=== PATIENT | male | born 1945 | race Caucasian/White ===

== ENCOUNTER → 2018-07-31 | Outpatient (CLI) | payer MEDICARE ==
--- NOTE | 2018-07-31 17:55 | MR ---
EXAMINATION TYPE: MR knee RT wo con DATE OF EXAM: 07/31/2018 COMPARISON: None HISTORY: 72-year-old male with right knee pain/medial x 6 mos, hx of fall years ago/torn ACL TECHNIQUE: Multiplanar, multisequence imaging of the right knee is performed without IV contrast. 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 PCL is mildly thickened at 8 mm with some intermediate signal along its midportion. This could repres ent a partial tear or degenerative signal. MCL is intact. LCL complex is intact. Medial meniscus shows a through and through posterior root tear with complex tear extending throughou t the posterior horn into the body. There is extrusion of the medial meniscal body and mass effect on to the overlying MCL. Mild to moderate irregular cartilage loss throughout the medial compartment. The lateral meniscus is diffusely degenerative, torn, an extruded. Extensive fragmentation of the men iscal body is noted. Mild to moderate irregular cartilage loss throughout the lateral compartment. Mild diffuse thinning of patellofemoral compartment articular cartilage volume with a focal superfici al areas of cartilage irregularity. There is marginal spurring. Extensor mechanism is intact. Nonspecific mild anterior soft tissue swelling. There is also a small k nee joint effusion without Rey's cyst. Ganglion cyst formation measuring up to 1.7 x 0.6 x 2.4 cm at the semimembranosus insertion along the posterior lip of the medial tibial plateau. Normal popliteal artery anatomy. Mild to moderate generalized muscular atrophy. No suspicious bone ma rrow replacement. IMPRESSION: 1. Chronically ruptured ACL. 2. Mildly thickened PCL with some inhomogeneous signal. This could represent partial tear. 3. Diffusely degenerative and torn lateral meniscus. Extensive fragmentation of the meniscal body. 4. Through and through tear of the posterior root of the medial meniscus with additional tear extendi ng throughout the posterior horn into the body. The body is extruded with mass effect onto the overly ing MCL. 5. Mild to moderate overall tricompartmental osteoarthrosis with irregular cartilage thinning and mar ginal spurring.
== END | disposition home or self-care (01) ==
LOC: RADMRIMAIN 09:19
PROVIDERS: ATTEND Orthopaedic Surgery
DX: S83.511A Sprain of anterior cruciate ligament of right knee, initial encounter (principal); S83.281A Other tear of lateral meniscus, current injury, right knee, initial encounter; S83.241A Other tear of medial meniscus, current injury, right knee, initial encounter; M17.11 Unilateral primary osteoarthritis, right knee

== ENCOUNTER 2019-08-07 22:42 | Inpatient (IN) | payer MEDICARE ==
--- NOTE | 2019-08-07 23:32 | XR ---
EXAMINATION TYPE: XR chest 2V DATE OF EXAM: 08/07/2019 COMPARISON: 10/08/2015 HISTORY: Chest pain TECHNIQUE: FINDINGS: There is no heart failure nor confluent pneumonic infiltrate. Costophrenic angles are clear . There are sternal wires. Bony thorax appears intact. IMPRESSION: No active cardiomegaly disease. Normal heart. No change.
[2019-08-07 23:51] LABS: Basophils % (A) 1 %; Eosinophils # (A) 0.2 k/uL (0-0.7); Eosinophils % (A) 3 %; HCT 44.8 % (39.0-53.0); HGB 15.3 gm/dL (13.0-17.5); Lymphocytes # (A) 1.9 k/uL (1.0-4.8); Lymphocytes % (A) 31 %; MCH 32.9 pg (25.0-35.0); MCHC 34.1 g/dL (31.0-37.0); MCV 96.6 fL (80.0-100.0); Mean Platelet Volume 7.3; Monocytes # (A) 0.3 k/uL (0-1.0); Monocytes % (A) 5 %; Neutrophils # (A) 3.5 k/uL (1.3-7.7); Neutrophils % (A) 58 %; Platelet Count 259 k/uL (150-450); RBC 4.63 m/uL (4.30-5.90)
[2019-08-08] LABS: Prothrombin Time 10.6 sec (9.0-12.0)
[2019-08-08 00:16] LABS: ALT 36 U/L (4-49); AST 38 U/L (17-59); African American GFR (CKD) >90 (>60 ml/min/1.73 sqM); Albumin 4.4 g/dL (3.5-5.0); Alkaline Phosphatase 82 U/L (38-126); Anion Gap 9 mmol/L; Blood Urea Nitrogen 23 mg/dL (9-20); Calcium 9.6 mg/dL (8.4-10.2); Carbon Dioxide 23 mmol/L (22-30); Chloride 107 mmol/L (98-107); Creatine Kinase 139 U/L (55-170); Glucose 98 mg/dL (74-99); Non-African American GFR(CKD) 89 (>60 ml/min/1.73 sqM); Sodium 139 mmol/L (137-145); Total Bilirubin 0.4 mg/dL (0.2-1.3); Total Protein 7.2 g/dL (6.3-8.2)
--- NOTE | 2019-08-08 00:18 | ED ---
Chest Pain HPI - General Chief Complaint: Chest Pain Stated Complaint: Chest Pain Time Seen by Provider: 08/07/19 23:25 Source: patient, RN notes reviewed, old records reviewed Mode of arrival: ambulatory Limitations: no limitations - History of Present Illness MD Complaint: chest pain -: days(s) Onset: during rest, during exertion Pain Location: substernal, left chest Pain Radiation: LUE Severity: moderate Severity scale (1-10): 4 Quality: tightness, heaviness Consistency: intermittent, now resolved Improves With: nothing Worsens With: exertion Anginal Symptoms: dyspnea Treatments Prior to Arrival: none - Related Data Home Medications Medication Instructions Recorded Confirmed Atorvastatin Calcium [Lipitor] 80 mg PO DAILY 10/08/15 10/08/15 Clopidogrel [Plavix] 75 mg PO DAILY 10/08/15 10/08/15 Metoprolol Tartrate [Lopressor] 50 mg PO BID 10/08/15 10/08/15 Previous Rx's Medication Instructions Recorded Amoxicillin/Potassium Clav 1 each PO Q12HR #20 tab 10/08/15 [Augmentin 875-125 Tablet] Benzonatate [Tessalon Perles] 100 mg PO TID PRN #15 cap 10/08/15 Fluticasone Nasal [place] [Flonase 2 spr EA NOSTRIL DAILY PRN #1 10/08/15 Nasal [place]] bottle Allergies Allergy/AdvReac Type Severity Reaction Status Date / Time No Known Allergies Allergy Verified 08/07/19 22:50 Review of Systems ROS Statement: Those systems with pertinent positive or pertinent negative responses have been documented in the HPI. ROS Other: All systems not noted in ROS Statement are negative. EKG Findings - EKG Comments: EKG Findings:: EKG shows sinus sam 56 MN 164 QRS 126 QTc 413 Past Medical History Past Medical History: Hyperlipidemia, Hypertension, Myocardial Infarction ([place]) History of Any Multi-Drug Resistant Organisms: None Reported Past Surgical History: Coronary Bypass/CABG, Heart Catheterization, Heart Catheterization With Stent Past Psychological History: No Psychological Hx Reported Smoking Status: Former smoker Past Alcohol Use History: Occasional Past Drug Use History: None Reported - Past Family History Mother Family Medical History: Cancer Father Family Medical History: Coronary Artery Disease (CAD) General Exam Limitations: no limitations General appearance: alert, in no apparent distress Head exam: Present: atraumatic, normocephalic, normal inspection Eye exam: Present: normal appearance, PERRL, EOMI. Absent: scleral icterus, conjunctival injection, periorbital swelling ENT exam: Present: normal exam, mucous membranes moist Neck exam: Present: normal inspection. Absent: tenderness, meningismus, lymphadenopathy Respiratory exam: Present: normal lung sounds bilaterally. Absent: respiratory distress, wheezes, rales, rhonchi, stridor Cardiovascular Exam: Present: regular rate, normal rhythm, normal heart sounds. Absent: systolic murmur, diastolic murmur, rubs, gallop, clicks GI/Abdominal exam: Present: soft, normal bowel sounds. Absent: distended, ten derness, guarding, rebound, rigid Extremities exam: Present: normal inspection, full ROM, normal capillary refill. Absent: tenderness, pedal edema, joint swelling, calf tenderness Back exam: Present: normal inspection Neurological exam: Present: alert, oriented X3, CN II-XII intact Psychiatric exam: Present: normal affect, normal mood Skin exam: Present: warm, dry, intact, normal color. Absent: rash Course Vital Signs 08/07/19 08/08/19 08/08/19 22:44 00:00 01:00 Temperature 97.8 F Pulse Rate 63 54 L 53 L Respiratory 18 18 16 Rate Blood Pressure 173/100 128/84 119/74 O2 Sat by Pulse 99 97 95 Oximetry 08/08/19 02:00 Temperature 98.1 F Pulse Rate 52 L Respiratory 16 Rate Blood Pressure 112/86 O2 Sat by Pulse 95 Oximetry Disposition Clinical Impression: Chest pain, Acute non-ST elevation myocardial infarction (NSTEMI) Disposition: ADMITTED IP TO THIS HOSP Condition: Serious Is patient prescribed a controlled substance at d/c from ED?: No
[2019-08-08] MEDS ORDERED: HEPARIN SODIUM,PORCINE 5,000 UNIT/ML 1 ML VIAL IV ONE (01:23)
[2019-08-08] MEDS ORDERED: HEPARIN SODIUM,PORCINE 5,000 UNIT/ML 1 ML VIAL IV PRN (01:23)
[2019-08-08] MEDS ORDERED: ASPIRIN 81 MG PO STA (01:23)
[2019-08-08] MEDS ORDERED: NITROGLYCERIN SL TABS 0.4 MG TAB SUBLINGUAL PRN ×2 (01:23→08:53)
[2019-08-08] MEDS ORDERED: HEPARIN SOD,PORK IN 0.45% NACL 25,000 UNIT in 0.45% NACL 1 250ML.BAG IV SCH (01:30)
[2019-08-08] MEDS ORDERED: SODIUM CHLORIDE 0.9% 1,000 ML in EMPTY BAG 1 BAG IV ONE (08:53)
[2019-08-08] MEDS ORDERED: ALPRAZolam 0.25 MG TAB PO PRN (08:53)
[2019-08-08] MEDS ORDERED: ATORVASTATIN 80 MG TAB PO STA (08:53)
[2019-08-08] MEDS ORDERED: ASPIRIN 325 MG TAB PO STA (08:53)
[2019-08-08] MEDS ORDERED: ALPRAZolam 0.5 MG TAB PO PRN (08:53)
[2019-08-08 09:03] LABS: Mean Platelet Volume 7.4; Platelet Count 224 k/uL (150-450)
[2019-08-08] MEDS: ATORVASTATIN 80 MG TAB PO SCH (09:35)
[2019-08-08] MEDS ORDERED: LIDOCAINE 1% INJ 10MG/ML (20 ML MDV) ONE (09:50)
[2019-08-08] MEDS ORDERED: fentaNYL (PF) 50 MCG/ML 2 ML AMP ONE (09:51)
[2019-08-08] MEDS ORDERED: MIDAZOLAM 2 MG/2 ML VIAL IV ONE (10:15)
[2019-08-08] MEDS ORDERED: fentaNYL (PF) 50 MCG/ML 2 ML AMP IV ONE (10:15)
[2019-08-08] MEDS ORDERED: LIDOCAINE 1% INJ 10MG/ML (20 ML MDV) SQ ONE (10:18)
[2019-08-08] MEDS ORDERED: IV FLUID CONTINUATION 1,000 ML IV ONE (10:19)
[2019-08-08] MEDS ORDERED: IOPAMIDOL-370 100ML BTL INJ ONE ×3 (10:38→11:56)
[2019-08-08] MEDS ORDERED: AMIODARONE 360 MG in DEXTROSE 5% IN WATER 200 ML IV ONE ×2 (10:45)
[2019-08-08] MEDS ORDERED: AMIODARONE 50 MG/ML 3 ML VIAL IV ONE (10:47)
[2019-08-08] MEDS ORDERED: BIVALIRUDIN 250 MG in SODIUM CHLORIDE 0.9% 31 ML IV ONE (11:11)
[2019-08-08] MEDS ORDERED: BIVALIRUDIN BOLUS 250 MG/50 ML IV ONE (11:11)
--- NOTE | 2019-08-08 11:13 | P.CARDCATH ---
Date of Procedure: 08/08/19 Preoperative Diagnosis: Non-STEMI Postoperative Diagnosis: Total occlusion of the graft to the right and the total occlusion of the graft to the OM branch with significant clot. The GONZALEZ graft to LAD is open. The [place] left main has about 70-80% stenosis and total occlusion of the [place] right Procedure(s) Performed: Left heart catheterization with selective coronary arteriography and selective injection of the 2 vein grafts and the GONZALEZ graft Description of Procedure: HISTORY: This is a 73-year-old gentleman with history of previous bypass surgery with 3 grafts and also subsequent stent placement 2. Patient is admitted to the hospital with prolonged chest pain at rest with positive troponins suggestive of non-ST GA. Patient is advised to have a cardiac catheterization for definitive diagnosis CONSENT:I have discussed the risks, benefits and alternative therapies for the above-mentioned procedure and for both sedation/analgesia as well as necessary blood product administration, if indicated, as they pertain to this patient. The patient has indicated understanding and acceptance of the risks and procedures discussed. PROCEDURE: Patient was brought to the lab in a fasting state. Patient was given some IV sedation. The right groin is infiltrated with lidocaine and right femoral artery was entered using Seldinger technique. A 6-Kittitian catheter was left in place and selective coronary arteriography was performed. Selective injection of the 2 vein grafts and also GONZALEZ graft performed. Patient developed an episode of ventricular fibrillation in the procedure, requiring shocks 3. Patient regained pulse and blood pressure promptly without any incident. Subsequently, Patient tolerated the procedure well. Patient was found to have significant disease involving the graft to the OM branch and Dr. KEYONA Guerra is attempting to reopen the graft. Patient also received 150 mg of IV amiodarone bolus followed by drip Conscious Sedation: Versed 1mg Fentanyl 50 g Duration 35minutes HEMODYNAMICS: The aortic pressure is 148/74. The left ventricle end-diastolic pressure is 15-20. There was no gradient across the aortic valve SELECTIVE CORONARY ARTERIOGRAPHY: LEFT MAIN: Mrs. normally length with the distal stenosis with any area of about 70-80% narrowing. THE LEFT ANTERIOR DESCENDING CORONARY ARTERY: This is totally occluded THE LEFT CIRCUMFLEX AND IS CORONARY ARTERY: There is a large intermediate OM branch which seemed to be free of occlusive disease. Beyond that the circumflex is a long lesion leading to the OM branch. The OM branch is relatively small and is supplied by vein graft THE RIGHT CORONARY ARTERY:. This is diffuse disease and total occluded distally. THE GONZALEZ GRAFT TO THE LAD: This is patent throat its length with mild disease at distal anastomosis. LAD has mild disease distally . The vein graft to the OM branch: This is diffusely diseased with multiple lesions on clot and total occlusion in midportion. The The vein graft to the RCA: Is totally occluded LEFT VENTRICULOGRAPHY: Not performed FINAL IMPRESSION:. Coronary artery disease with a total occlusion of the LAD and RCA and a critical lesion in the circumflex. Left main also has significant disease distally. The GONZALEZ graft to the LAD is open. The vein graft to the RCA is totally occluded. The vein graft to the OM branch has diffuse disease though filling defects. PLAN: Dr. KEYONA Guerra is going to return to work in the graft to the OM branch. Subsequently we'll may have to consider stenting of the left main because is providing brisk flow to the OM branch/intermediate branch PROGNOSIS: Guarded
[2019-08-08] MEDS: niCARdipine Syringe (1,000 mcg/10 mL) INTRACORON ONE ×2 (11:33→11:53)
[2019-08-08] MEDS ORDERED: CLOPIDOGREL 75 MG TAB ONE ×2 (11:37→11:39)
[2019-08-08] MEDS ORDERED: CLOPIDOGREL 75 MG TAB PO ONE (11:42)
[2019-08-08] MEDS ORDERED: BIVALIRUDIN 250 MG in SODIUM CHLORIDE 0.9% 50 ML IV ONE (11:47)
[2019-08-08] MEDS ORDERED: NITROGLYCERIN 1000MCG/10ML SYRINGE INTRACORON ONE (11:53)
[2019-08-08] MEDS ORDERED: HYDROmorphone 1 MG/ML 1 ML SYRINGE ONE (12:09)
--- NOTE | 2019-08-08 12:10 | ECHOF ---
Referral Reason:elevTrop MEASUREMENTS -------- HEIGHT: 172.7 cm WEIGHT: 131.5 kg BP: 149/72 RVIDd: 3.7 cm (< 3.3) IVSd: 1.6 cm (0.6 - 1.1) LVIDd: 5.9 cm (3.9 - 5.3) LVPWd: 1.7 cm (0.6 - 1.1) IVSs: 1.9 cm LVIDs: 3.3 cm LVPWs: 2.0 cm LA Diam: 3.9 cm (2.7 - 3.8) Ao Diam: 3.8 cm (2.0 - 3.7) AV Cusp: 2.0 cm (1.5 - 2.6) MV EXCURSION: 22.213 mm (> 18.000) MV EF SLOPE: 83 mm/s (70 - 150) EPSS: 0.5 cm MV E Samson: 0.90 m/s MV DecT: 201 ms MV A Samson: 0.85 m/s MV E/A Ratio: 1.06 RAP: 5.00 mmHg RVSP: 31.41 mmHg FINDINGS -------- Resting bradycardia (HR<60bpm). This was a technically difficult study with suboptimal views. The left ventricular size is normal. There is moderate concentric left ventricular hypertrophy. O verall left ventricular systolic function is low-normal with, an EF between 50 - 55 %. Basal inferi or LV wall motion is hypokinetic. Basal inferoseptal LV wall motion is hypokinetic. The right ventricle is mild to moderately enlarged. The left atrial size is normal. The right atrium is normal in size. 5.0mg of Lumason was utilized for enhancement of images There is mild aortic valve sclerosis. Mild mitral annular calcification present. Mild mitral regurgitation is present. Mild tricuspid regurgitation present. Right ventricular systolic pressure is normal at < 35 mmHg. The pulmonic valve was not well visualized. The aortic root is dilated measuring 3.8cm. IVC Not well visulized. There is no pericardial effusion. CONCLUSIONS -------- 1. Resting bradycardia (HR<60bpm). 2. This was a technically difficult study with suboptimal views. 3. The left ventricular size is normal. 4. There is moderate concentric left ventricular hypertrophy. 5. Overall left ventricular systolic function is low-normal with, an EF between 50 - 55 %. 6. Basal inferior LV wall motion is hypokinetic. 7. Basal inferoseptal LV wall motion is hypokinetic. 8. The right ventricle is mild to moderately enlarged. 9. The left atrial size is normal. 10. The right atrium is normal in size. 11. 5.0mg of Lumason was utilized for enhancement of images 12. There is mild aortic valve sclerosis. 13. Mild mitral annular calcification present. 14. Mild mitral regurgitation is present. 15. Mild tricuspid regurgitation present. 16. Right ventricular systolic pressure is normal at < 35 mmHg. 17. The pulmonic valve was not well visualized. 18. The aortic root is dilated measuring 3.8cm. 19. IVC Not well visulized. 20. There is no pericardial effusion. LANDFILL ATTENDANT: Lady Chinchilla RDCS
[2019-08-08 12:25] LABS: Glucose,Whole Blood 119 mg/dL (75-99)
--- NOTE | 2019-08-08 12:31 | PTCA ---
PERCUTANEOUSTRANS CORORONARY ANGIOGRAPHY DATE OF SERVICE: 08/08/2019. PROCEDURE PERFORMED: PTCA and stenting of a totally occluded saphenous vein graft to the obtuse marginal branch of circumflex. Three drug-eluting stents were used. PERFORMED BY: Dr. Ildefonso Guerra. SEDATION: Moderate conscious sedation time was 52 minutes. Patient was administered Versed. Oxygen saturation, hemodynamics and EKG were monitored closely. CLINICAL INFORMATION: Mr. Joey Terrazas is a patient with a history of hypertension, CAD, prior bypass surgery nearly 25-30 years ago performed at [facility]. He has a GONZALEZ to LAD, 2 vein grafts probably to the RCA and obtuse marginal. He presented with a non-ST elevation PA, was seen and evaluated by Dr. Hoff who performed a cardiac cath. Study revealed total occlusion of the vein graft to the obtuse marginal. RCA graft was seen as a stump. The GONZALEZ to LAD was patent. There was a [place] left main disease which was significant supplying a fairly decent size good distribution diagonal branch. RCA was diffusely diseased, almost distally occluded. He was advised PCI of the vein graft to the circumflex marginal which was a very highly diseased graft that was more than 25 years old. PROCEDURE NOTE: The existing 6-Chinese introducer in the right femoral artery was used to perform procedure. I used a left bypass guide catheter to cannulate the saphenous vein graft to the obtuse marginal. A run-through wire was used to cross the lesion. Predilatation was performed with a 20 mm long 2.5 caliber Trek balloon. I then deployed a 3.25 caliber 28 mm long Xience stent distally. I used an additional 28 mm long 3.25 caliber Xience stent and telescoped this into it proximal to the previous stent. The third stent was a 23 mm long 3.25 caliber stent. All stents were deployed. Flow was excellent. Patient received nicardipine and a nitroglycerin intracoronary. Subsequently, I used a 3.5 NC Trek balloon and dilated the entire stented segment with a 3.5 NC Trek balloon at 13 atmospheres. Patient had mild chest discomfort and no significant EKG changes. Excellent angiographic result was achieved. The distal aspect of the obtuse marginal had a cutoff sign suggesting that there needs to be some thrombus distally. Excellent result was achieved. Results were discussed with the patient and he wishes to talk to his sister who is his nearest relative. The sheath was then taken out and Angio-Seal device used to secure hemostasis and he was sent to the ICU in a stable condition. Prior to the intervention procedure during the cardiac cath, he went into ventricular fibrillation requiring to be shocked. He is on amiodarone drip as well. The aspirin and Plavix will be continued indefinitely. He received 600 mg of Plavix here in the laboratory engineer and also was placed on Angiomax bolus and infusion drip. Excellent angiographic result without complication was achieved. MMMILANAL / IJN: [id number] /
[2019-08-08 12:45] LABS: Magnesium 2.2 mg/dL (1.6-2.3); Potassium 4.4 mmol/L (3.5-5.1)
--- NOTE | 2019-08-08 13:02 | P.CRDCN ---
History of Present Illness Consult date: 08/08/19 Consult reason: non-Q-wave [place] History of present illness: This is a 73-year-old male, not currently following with cardiology. He has a past medical history of coronary artery disease with 3 vessel CABG done 30 years ago, one stent placement 20 years ago and a second stent placement done 10 years ago, all at [facility]. He saw Dr. Recinos one year ago for stress test prior to knee surgery. He also has a past medical history of hypertension, hyperlipidemia, remote history of tobacco use. Patient states he is normally very active but due to [id number] order, patient states he has not been doing any physical activity. He complains of last 3 days having chest pain to the left side of sternal border. It mostly happens when he sitting or at rest. He states when he ambulates he does have some exertional chest pain that resolves once he stops his activity. He states he's been having this pain for 3 days intermittently and it became significantly worse yesterday and he took nitroglycerin that was from 2007. He believes this helped his pain and that resolved within 20-30 minutes. He denies any nausea, vomiting, sweats, radiation of the pain. At the time of this evaluation, patient denies having any chest pain but feels he is upset stomach from being hungry. EKG sinus bradycardia with intraventricular block. Troponin 0.495 and 1.080. Chest x-ray no active cardiopulmonary disease. Echocardiogram reveals EF of 50-55% with moderate concentric left ventricular hypertrophy, basal inferior septal LV wall motion hypokinetic, mild mitral regurgitation, mild tricuspid regurgitation, aortic root is dilated at 3.8 cm. Patient was advised for heart catheterization and patient is agreeable bowl understanding the risk involved. Review Of Systems: Constitutional: No fever, no chills, no night sweats. No weight change. No weakness, fatigue or lethargy. No daytime sleepiness. EENT: No headache. No blurred vision or double vision, no loss of vision. No loss of Hearing, no ringing in the ears, no dizziness. No nasal drainage or congestion. No epistaxis. No sore throat. Lungs: No shortness of breath, cough, no sputum production. No wheezing. Cardiovascular: Reports chest pain, no lower extremity edema. No palpitations. No paroxysmal nocturnal dyspnea. No orthopnea. No lightheadedness or dizziness. No syncopal episodes. Abdominal: No abdominal pain. No nausea, vomiting. No diarrhea. No constipation. No bloody or tarry stools.. No loss of appetite. Genitourinary: No dysuria, increased frequency, urgency. No urinary retention. Musculoskeletal: No myalgias. No muscle weakness, no gait dysfunction, no frequent falls. No back pain. No neck pain. Integumentary: No wounds, no lesions. No rash or pruritus. No unusual bruising. No change in hair or nails. Neurologic: No aphasia. No facial droop. No change in mentation. No head injury. No headache. No paralysis. No paresthesia. Psychiatric: No depression. No anxiety. No mood swings. Endocrine: No abnormal blood sugars. No weight change. No excessive sweating or thirst. No cold intolerance. No weight change. Physical examination: Gen: This is a 73-year-old morbidly obese male. Patient's rest of the edge of the bed and appears to be comfortable and in no acute distress. VS: Afebrile, heart rate 66, blood pressure 162/84, pulse ox 98% on room air HEENT: Head is atraumatic, normocephalic. Pupils equal, round. Sclerae is anicteric. NECK: Supple. No JVD. No lymphadenopathy. No thyromegaly. LUNGS: Clear to auscultation. No wheezes or rhonchi. No intercostal retractions. HEART: Regular rate and rhythm. No murmur. ABDOMEN: Soft. Bowel sounds are present. No masses. No tenderness. EXTREMITIES: No pedal edema. No calf tenderness. NEUROLOGICAL: Patient is awake, alert and oriented x3. Cranial nerves 2 through 12 are grossly intact. Assessment: Non-ST elevated myocardial infarction History of coronary artery disease with previous [place], CABG and stent placement Hypertension Hyperlipidemia Remote history of tobacco use and dependence Plan: Continue heparin drip Patient advised to undergo heart catheterization Continue aspirin, atorvastatin Further recommendations to follow based upon clinical course Thank you kindly for this consultation Nurse practitioner note has been reviewed, I agree with documented findings and plan of care. Patient was seen and examined. Past Medical History Past Medical History: Hyperlipidemia, Hypertension, Myocardial Infarction ([place]) Last Myocardial Infarction Date:: 1989 History of Any Multi-Drug Resistant Organisms: None Reported Past Surgical History: Coronary Bypass/CABG, Heart Catheterization, Heart Catheterization With Stent Additional Past Surgical History / Comment(s): CABG 30yrs Past Anesthesia/Blood Transfusion Reactions: No Reported Reaction Date of Last Stent Placement:: 1989 Past Psychological History: No Psychological Hx Reported Smoking Status: Former smoker Past Alcohol Use History: Occasional Past Drug Use History: None Reported - Past Family History Mother Family Medical History: Cancer Father Family Medical History: Coronary Artery Disease (CAD) Medications and Allergies Home Medications Medication Instructions Recorded Confirmed Type Amoxicillin/Potassium Clav 1 each PO Q12HR #20 tab 10/08/15 Rx [Augmentin 875-125 Tablet] Atorvastatin Calcium [Lipitor] 80 mg PO DAILY 10/08/15 10/08/15 History Benzonatate [Tessalon Perles] 100 mg PO TID PRN #15 cap 10/08/15 Rx Clopidogrel [Plavix] 75 mg PO DAILY 10/08/15 10/08/15 History Fluticasone Nasal [place] [Flonase 2 spr EA NOSTRIL DAILY PRN #1 10/08/15 Rx Nasal [place]] bottle Metoprolol Tartrate [Lopressor] 50 mg PO BID 10/08/15 10/08/15 History Allergies Allergy/AdvReac Type Severity Reaction Status Date / Time No Known Allergies Allergy Verified 08/07/19 22:50 Physical Exam Vitals: Vital Signs Temp Pulse Pulse Resp BP BP Pulse Ox 08/08/19 08:00 97.9 F 66 16 162/84 98 08/08/19 02:20 98.1 F 58 L 16 149/72 98 08/08/19 02:00 98.1 F 52 L 16 112/86 95 08/08/19 01:00 53 L 16 119/74 95 08/08/19 00:00 54 L 18 128/84 97 08/07/19 22:44 97.8 F 63 18 173/100 99 Intake and Output 08/07/19 08/08/19 08/08/19 22:59 06:59 14:59 Other: Weight 131.542 kg 126.8 kg Results 08/08/19 08:12 08/08/19 08:12 Cardiac Enzymes 08/07/19 08/07/19 Range/Units 23:36 23:36 AST 38 (17-59) U/L Troponin I 0.495 H* (0.000-0.034) ng/mL Coagulation 08/07/19 Range/Units 23:36 PT 10.6 (9.0-12.0) sec APTT 24.0 (22.0-30.0) sec CBC 08/07/19 Range/Units 23:36 WBC 6.0 (3.8-10.6) k/uL RBC 4.63 (4.30-5.90) m/uL Hgb 15.3 (13.0-17.5) gm/dL Hct 44.8 (39.0-53.0) % Plt Count 259 (150-450) k/uL Comprehensive Metabolic Panel 08/07/19 Range/Units 23:36 Sodium 139 (137-145) mmol/L Potassium 4.0 (3.5-5.1) mmol/L Chloride 107 (98-107) mmol/L Carbon Dioxide 23 (22-30) mmol/L BUN 23 H (9-20) mg/dL Creatinine 0.82 (0.66-1.25) mg/dL Glucose 98 (74-99) mg/dL Calcium 9.6 (8.4-10.2) mg/dL AST 38 (17-59) U/L ALT 36 (4-49) U/L Alkaline Phosphatase 82 (38-126) U/L Total Protein 7.2 (6.3-8.2) g/dL Albumin 4.4 (3.5-5.0) g/dL Current Medications Generic Name Dose Route Start Last Admin Trade Name Freq PRN Reason Stop Dose Admin Aspirin 325 mg 08/09/19 09:00 Aspirin PO DAILY [facility] Atorvastatin Calcium 80 mg 08/08/19 09:00 Lipitor PO DAILY [facility] Heparin Sodium (Porcine) 0 unit 08/08/19 01:23 Heparin IV Q6HR PRN Low PTT Protocol Heparin Sodium/Sodium Chloride 250 mls @ 9.958 mls/hr 08/08/19 01:30 08/08/19 02:10 25,000 unit/ Sodium Chloride IV 7.57 units/kg/hr .Q24H AC 9.958 mls/hr Administration Protocol 7.57 UNITS/KG/HR Nitroglycerin 0.4 mg 08/08/19 01:23 Nitrostat SUBLINGUAL Q5M PRN Chest Pain Intake and Output 0508/08/19 08/08/19 22:59 06:59 14:59 Other: Weight 131.542 kg 126.8 kg 08/07/19 23:36 08/07/19 23:36
[2019-08-08] MEDS ORDERED: BENZONATATE 100 MG CAP PO PRN (13:25)
[2019-08-08] MEDS: SODIUM CHLORIDE 0.9% 1,000 ML IV SCH (14:06)
[2019-08-08 14:21] LABS: Magnesium 2.1 mg/dL (1.6-2.3)
--- NOTE | 2019-08-08 15:16 | P.HPIM ---
History of Present Illness This is a pleasant 73 years old male with past medical history of hypertension, hyperlipidemia, coronary artery disease . He presented with severe anginal-like chest pain as patient describes it, he felt comfortable and very bad pain with no associated coughing or dyspnea.Vitals are stable. He was recently referred to PCP Dr. Tabor who has not met to me him yet Former smoker, no alcohol or illicit drugs Labs are unremarkable including CBC, INR, BMP, liver enzymes. Troponin is elevated 0.49 and. Chest x-ray: No acute process Patient has been evaluated by binder sorter and he underwent cardiac cath PTCA and stenting of a totally occluded saphenous vein graft to the obtuse marginal branch of circumflex coronary artery with 3 drug-eluting stents were used Patient is currently on aspirin or Plavix, also his normal sinus 75 mL/h He underwent emergent cardiac cath, status post CABG and stent placement with PTCA and stenting of totally occluded saphenous vein graft to the obtuse marginal branch of circumflex artery Review of Systems CONSTITUTIONAL: No fever, no malaise, no fatigue. HEENT: No recent visual problems or hearing problems. Denied any sore throat. CARDIOVASCULAR: No orthopnea, PND, no palpitations, no syncope. PULMONARY: No shortness of breath, no cough, no hemoptysis. GASTROINTESTINAL: No diarrhea, no nausea, no vomiting, no abdominal pain. Normoactive bowel sounds. NEUROLOGICAL: No headaches, no weakness, no numbness. HEMATOLOGICAL: Denies any bleeding or petechiae. GENITOURINARY: Denies any burning micturition, frequency, or urgency. MUSCULOSKELETAL/RHEUMATOLOGICAL: Denies any joint pain, swelling, or any muscle pain. ENDOCRINE: Denies any polyuria or polydipsia. Past Medical History Past Medical History: Hyperlipidemia, Hypertension, Myocardial Infarction ([place]) Last Myocardial Infarction Date:: 1989 History of Any Multi-Drug Resistant Organisms: None Reported Past Surgical History: Coronary Bypass/CABG, Heart Catheterization, Heart C atheterization With Stent Additional Past Surgical History / Comment(s): CABG 30yrs Past Anesthesia/Blood Transfusion Reactions: No Reported Reaction Date of Last Stent Placement:: 1989 Past Psychological History: No Psychological Hx Reported Smoking Status: Former smoker Past Alcohol Use History: Occasional Past Drug Use History: None Reported - Past Family History Mother Family Medical History: Cancer Father Family Medical History: Coronary Artery Disease (CAD) Medications and Allergies Home Medications Medication Instructions Recorded Confirmed Type Amoxicillin/Potassium Clav 1 each PO Q12HR #20 tab 10/08/15 Rx [Augmentin 875-125 Tablet] Atorvastatin Calcium [Lipitor] 80 mg PO DAILY 10/08/15 10/08/15 History Benzonatate [Tessalon Perles] 100 mg PO TID PRN #15 cap 10/08/15 Rx Clopidogrel [Plavix] 75 mg PO DAILY 10/08/15 10/08/15 History Fluticasone Nasal [place] [Flonase 2 spr EA NOSTRIL DAILY PRN #1 10/08/15 Rx Nasal [place]] bottle Metoprolol Tartrate [Lopressor] 50 mg PO BID 10/08/15 10/08/15 History Allergies Allergy/AdvReac Type Severity Reaction Status Date / Time No Known Allergies Allergy Verified 08/07/19 22:50 Physical Exam Vitals: Vital Signs Temp Pulse Pulse Resp BP BP Pulse Ox 08/08/19 12:44 97.6 F 60 20 128/87 94 L 08/08/19 08:00 97.9 F 66 16 162/84 98 08/08/19 02:20 98.1 F 58 L 16 149/72 98 08/08/19 02:00 98.1 F 52 L 16 112/86 95 08/08/19 01:00 53 L 16 119/74 95 08/08/19 00:00 54 L 18 128/84 97 08/07/19 22:44 97.8 F 63 18 173/100 99 Intake and Output 08/07/19 08/08/19 08/08/19 22:59 06:59 14:59 Intake Total 356 Balance 356 Intake: IV 356 Other: Weight 131.542 kg 126.8 kg GENERAL: The patient is alert and oriented x3, not in any acute distress. Well developed, well nourished. HEENT: Pupils are round and equally reacting to light. EOMI. No scleral icterus. No conjunctival pallor. Normocephalic, atraumatic. No pharyngeal erythema. No thyromegaly. CARDIOVASCULAR: S1 and S2 present. No murmurs, rubs, or gallops. PULMONARY: Chest is clear to auscultation, no wheezing or crackles. ABDOMEN: Soft, nontender, nondistended, normoactive bowel sounds. No palpable organomegaly. MUSCULOSKELETAL: No joint swelling or deformity. EXTREMITIES: No cyanosis, clubbing, or pedal edema. NEUROLOGICAL: Gross neurological examination did not reveal any focal deficits. SKIN: No rashes. No petechiae Results CBC & Chem 7: 08/08/19 08:12 08/08/19 13:53 Labs: Abnormal Lab Results - Last 24 Hours (Table) 08/07/19 08/07/19 08/08/19 Range/Units 23:36 23:36 08:12 APTT (22.0-30.0) sec BUN 23 H (9-20) mg/dL POC Glucose (mg/dL) (75-99) mg/dL Troponin I 0.495 H* 1.080 H* (0.000-0.034) ng/mL 08/08/19 08/08/19 Range/Units 08:12 12:23 APTT 34.6 H (22.0-30.0) sec BUN (9-20) mg/dL POC Glucose (mg/dL) 119 H (75-99) mg/dL Troponin I (0.000-0.034) ng/mL Thrombosis Risk Factor Assmnt - Choose All That Apply Any of the Below Risk Factors Present?: Yes Each Factor Represents 1 point: Obesity (BMI >25) Other Risk Factors: Yes Each Risk Factor Represents 2 Points: Age 61-74 years Thrombosis Risk Factor Assessment Total Risk Factor Score: 3 Thrombosis Risk Factor Assessment Level: Moderate Risk Assessment and Plan Assessment: Non-STEMI, status post emergent stenting of a totally occluded saphenous vein graft to the obtuse marginal branch of circumflex coronary Hypertension Hyperlipidemia History of coronary artery disease status post stent and CABG Plan: this is a pleasant 73 years old male who presents with an STEMI, status post cardiac cath and stent placement to occluded the graft to the obtuse branch of circumflex artery. Continue with aspirin and Plavix . Continue with IV fluids Labs and medication were reviewed.. Continue same treatment. Continue with symptomatic treatment. Resume home medication. Monitor lytes and vitals. DVT and GI prophylaxis. Further recommendations of the clinical course of the patient Prognosis is guarded
[2019-08-08] MEDS: AMIODARONE 300 MG in DEXTROSE 5% IN WATER 250 ML IV SCH ×2 (17:34)
[2019-08-08] MEDS: METOPROLOL TARTRATE 12.5 MG TAB PO SCH (17:56)
[2019-08-09] MEDS: SODIUM CHLORIDE 0.9% 1,000 ML IV SCH (01:23)
[2019-08-09] MEDS: AMIODARONE 300 MG in DEXTROSE 5% IN WATER 250 ML IV SCH ×2 (03:34)
[2019-08-09 05:25] LABS: HCT 43.2 % (39.0-53.0); HGB 14.3 gm/dL (13.0-17.5); MCH 32.6 pg (25.0-35.0); MCHC 33.1 g/dL (31.0-37.0); MCV 98.6 fL (80.0-100.0); Mean Platelet Volume 7.4; Platelet Count 191 k/uL (150-450); RBC 4.38 m/uL (4.30-5.90); RDW 13.6 % (11.5-15.5)
[2019-08-09 05:38] LABS: African American GFR (CKD) >90 (>60 ml/min/1.73 sqM); Anion Gap 10 mmol/L; Blood Urea Nitrogen 12 mg/dL (9-20); Carbon Dioxide 19 mmol/L (22-30); Chloride 108 mmol/L (98-107); Cholesterol 142 mg/dL (<200); Glucose 106 mg/dL (74-99); HDL Cholesterol 41 mg/dL (40-60); LDL Cholesterol,Calculated 58 mg/dL (0-99); Non-African American GFR(CKD) >90 (>60 ml/min/1.73 sqM); Potassium 4.1 mmol/L (3.5-5.1); Sodium 137 mmol/L (137-145); Triglycerides 213 mg/dL (<150)
[2019-08-09] MEDS: METOPROLOL TARTRATE 12.5 MG TAB PO SCH (08:20)
[2019-08-09] MEDS: ATORVASTATIN 80 MG TAB PO SCH (08:20)
[2019-08-09] MEDS ORDERED: ASPIRIN 325 MG TAB PO SCH ×2 (09:00)
[2019-08-09] MEDS ORDERED: LOSARTAN 50 MG TAB PO SCH (09:00)
[2019-08-09] MEDS ORDERED: CLOPIDOGREL 75 MG TAB PO SCH (09:00)
[2019-08-09] MEDS ORDERED: ASPIRIN 81 MG PO SCH (09:00)
[2019-08-09 12:52] VITALS: BP 132/84; PULSE 68; RESP 19; TEMP 98.2
[2019-08-09] MEDS ORDERED: METOPROLOL TARTRATE 25 MG TAB PO SCH (21:00)
--- NOTE | 2019-08-10 01:31 | P.DS ---
Providers Date of admission: 08/08/19 01:23 Attending physician: Raymundo Trinidad Consults: 08/08/19 01:23 Consult Physician Urgent Consulting Provider: Saira Recinos Consult Reason/Comments: nstemi Do you want consulting provider notified?: Yes Primary care physician: Kia Zayas Hospital Course: Please note that patient signed leaving AMA Diagnoses: Non-STEMI, status post emergent stenting of a totally occluded saphenous vein graft to the obtuse marginal branch of circumflex coronary Hypertension Hyperlipidemia History of coronary artery disease status post stent and CABG Hospital course Patient was admitted to the hospital for non-STEMI, he underwent cardiac cath and stent was placed into his occluded graft. He remained in the ICU asymptomatic but he needs close monitoring by sexologist who recommended further monitoring total, however patient refused to wear and stay and he decided to leave AMA before have a chance to come and see the patient. Patient told to stop that he has aspirin and Plavix and that he is going to follow-up with his PCP to cut a prescription for nitroglycerin and Xanax recommended by sexologist. From my previous encounter and based upon my evaluation patient has capacity to make medical decision Risks, benefits and alternatives are explained to the patient by staff Please refer to H&P and sexologist notes for more details Patient Condition at Discharge: Serious Plan - Discharge Summary Discharge Rx Participant: Yes New Discharge Prescriptions: No Action Clopidogrel [Plavix] 75 mg PO DAILY Atorvastatin Calcium [Lipitor] 80 mg PO DAILY Gemfibrozil [Lopid] 600 mg PO DAILY Metoprolol Tartrate [Lopressor] 25 mg PO BID Losartan [Cozaar] 50 mg PO DAILY Discharge Medication List Atorvastatin Calcium [Lipitor] 80 mg PO DAILY 10/08/15 [History] Clopidogrel [Plavix] 75 mg PO DAILY 10/08/15 [History] Gemfibrozil [Lopid] 600 mg PO DAILY 08/08/19 [History] Losartan [Cozaar] 50 mg PO DAILY 08/08/19 [History] Metoprolol Tartrate [Lopressor] 25 mg PO BID 08/08/19 [History] Follow up Appointment(s)/Referral(s): Kia Zayas MD [Primary Care Provider] - 1-2 days Discharge Disposition: Left Against Medical Advice
== END 2019-08-09 12:35 | disposition left against medical advice (07) | DRG 246 ==
LOC: EC 22:42 → 3SCARD 08-08 01:23 → 2SICU 08-08 11:53
PROVIDERS: ADMIT Hospitalist; ATTEND Hospitalist
PROC: 5A2204Z Restoration of Cardiac Rhythm, Single (ICD-10-PCS; principal; 2019-08-08 09:21)
PROC: 027036Z Dilation of Coronary Artery, One Artery with Three Drug-eluting Intraluminal Devices, Percutaneous Approach (ICD-10-PCS; 2019-08-08 09:21)
PROC: 4A023N7 Measurement of Cardiac Sampling and Pressure, Left Heart, Percutaneous Approach (ICD-10-PCS; 2019-08-08 09:21)
PROC: B2111ZZ Fluoroscopy of Multiple Coronary Arteries using Low Osmolar Contrast (ICD-10-PCS; 2019-08-08 09:21)
PROC: B2131ZZ Fluoroscopy of Multiple Coronary Artery Bypass Grafts using Low Osmolar Contrast (ICD-10-PCS; 2019-08-08 09:21)
DX: I21.4 Non-ST elevation (NSTEMI) myocardial infarction (principal); I49.01 Ventricular fibrillation; I25.810 Atherosclerosis of coronary artery bypass graft(s) without angina pectoris; I25.2 Old myocardial infarction; Z87.891 Personal history of nicotine dependence; E78.5 Hyperlipidemia, unspecified; I11.9 Hypertensive heart disease without heart failure; I25.10 Atherosclerotic heart disease of native coronary artery without angina pectoris; I45.4 Nonspecific intraventricular block; Z79.02 Long term (current) use of antithrombotics/antiplatelets; Z79.899 Other long term (current) drug therapy; Z82.49 Family history of ischemic heart disease and other diseases of the circulatory system; Z95.5 Presence of coronary angioplasty implant and graft; Z95.1 Presence of aortocoronary bypass graft; Z80.9 Family history of malignant neoplasm, unspecified; Z11.59 Encounter for screening for other viral diseases; I08.1 Rheumatic disorders of both mitral and tricuspid valves
CPT/HCPCS: 36415; 71046; 80048; 80051; 80053; 80061; 82550; 83735; 84484; 85025; 85027; 85049; 85610; 85730; 87635; 93005; 93306; 93459; 96374; 99285

== ENCOUNTER 2019-09-08 08:03 | Day surgery (SDC) | payer MEDICARE ==
[~2019-09-08 08:03] MED LIST: ALPRAZolam 0.25 MG TAB PO PRN; ASPIRIN 325 MG TAB PO STA; ATORVASTATIN 80 MG TAB PO STA; NITROGLYCERIN SL TABS 0.4 MG TAB SUBLINGUAL PRN; SODIUM CHLORIDE 0.9% 1,000 ML in EMPTY BAG 1 BAG IV ONE
[2019-09-08] MEDS ORDERED: SODIUM CHLORIDE 0.9% 1,000 ML IV ONE (08:40)
[2019-09-08] MEDS ORDERED: LIDOCAINE 1% INJ 10MG/ML (20 ML MDV) ONE (08:51)
[2019-09-08] MEDS ORDERED: fentaNYL (PF) 50 MCG/ML 2 ML AMP ONE (09:12)
[2019-09-08 09:24] LABS: African American GFR (CKD) >90 (>60 ml/min/1.73 sqM); Anion Gap 8 mmol/L; Blood Urea Nitrogen 14 mg/dL (9-20); Calcium 9.6 mg/dL (8.4-10.2); Carbon Dioxide 24 mmol/L (22-30); Chloride 109 mmol/L (98-107); Glucose 108 mg/dL (74-99); Non-African American GFR(CKD) >90 (>60 ml/min/1.73 sqM); Potassium 4.9 mmol/L (3.5-5.1); Sodium 141 mmol/L (137-145)
[2019-09-08] MEDS: fentaNYL (PF) 50 MCG/ML 2 ML AMP IV ONE ×2 (09:30→10:35)
[2019-09-08] MEDS ORDERED: LIDOCAINE 1% INJ 10MG/ML (20 ML MDV) SQ ONE (09:32)
[2019-09-08] MEDS ORDERED: HEPARIN SODIUM 1,000 UN/ML (10ML VL) ONE ×2 (09:38→10:33)
[2019-09-08] MEDS: MIDAZOLAM 2 MG/2 ML VIAL IV ONE ×2 (09:41→10:56)
[2019-09-08 09:47] LABS: Basophils % (A) 0 %; Eosinophils # (A) 0.1 k/uL (0-0.7); Eosinophils % (A) 3 %; HCT 45.8 % (39.0-53.0); HGB 15.7 gm/dL (13.0-17.5); Lymphocytes # (A) 1.1 k/uL (1.0-4.8); Lymphocytes % (A) 22 %; MCH 33.3 pg (25.0-35.0); MCHC 34.2 g/dL (31.0-37.0); MCV 97.5 fL (80.0-100.0); Mean Platelet Volume 7.2; Monocytes # (A) 0.3 k/uL (0-1.0); Monocytes % (A) 6 %; Neutrophils # (A) 3.5 k/uL (1.3-7.7); Neutrophils % (A) 67 %; Platelet Count 199 k/uL (150-450); RDW 13.9 % (11.5-15.5); WBC 5.3 k/uL (3.8-10.6)
[2019-09-08] MEDS ORDERED: HYDROmorphone 1 MG/ML 1 ML SYRINGE ONE (09:57)
[2019-09-08] MEDS ORDERED: HYDROmorphone 1 MG/ML 1 ML SYRINGE IVP ONE (09:59)
[2019-09-08] MEDS ORDERED: NITROGLYCERIN 1000MCG/10ML SYRINGE INTRACORON ONE (10:07)
[2019-09-08] MEDS ORDERED: IOPAMIDOL-370 125ML BTL INJ ONE (10:11)
[2019-09-08] MEDS ORDERED: IOPAMIDOL-370 100ML BTL INJ ONE ×3 (10:27→11:10)
[2019-09-08] MEDS ORDERED: HEPARIN SODIUM 1,000 UN/ML (10ML VL) IV ONE (10:34)
[2019-09-08] MEDS ORDERED: ATROPINE SULFATE 0.1 MG/ML 10ML SYRINGE IV PRN (11:34)
[2019-09-08] MEDS ORDERED: MAG HYDROX/AL HYDROX/SIMETH 30 ML CUP PO PRN (11:34)
[2019-09-08] MEDS ORDERED: RX INFO: IV CONTRAST WAS GIVEN 1 EACH MISC MISCELLANE PRN (11:34)
[2019-09-08] MEDS ORDERED: NITROGLYCERIN SL TABS 0.4 MG TAB SUBLINGUAL PRN (11:34)
[2019-09-08] MEDS ORDERED: ZOLPIDEM 5 MG TAB PO PRN (11:34)
[2019-09-08] MEDS ORDERED: SODIUM CHLORIDE 0.9% 1,000 ML IV SCH (11:45)
[2019-09-08] MEDS: ALPRAZolam 0.5 MG TAB PO PRN ×2 (13:44→20:56)
--- NOTE | 2019-09-08 15:22 | PTCA ---
PERCUTANEOUSTRANS CORORONARY ANGIOGRAPHY Mr. Terrazas is a 73-year-old male, status post coronary artery bypass grafting 25 years ago who presented a few weeks ago with an acute myocardial infarction, was found to have a totally occluded saphenous vein graft to the obtuse marginal branch. He underwent revascularization of that vessel. At that time, he was found to have a totally occluded [place] obtuse marginal branch and critical stenosis in the left main and a very calcified segment leading into the ramus intermedius. In view of that, recommendation made regarding angioplasty and stenting, the procedures, risks, and complication were discussed with the patient, who is in full understanding and agreement. PROCEDURE: Patient was brought to dental laboratory worker in a fasting semi-sedate state after receiving fentanyl and Benadryl and achieving moderate conscious sedated state. Using Xylocaine anesthesia and Seldinger technique, a 7-Barb[place] sheath was introduced in the right femoral artery. Following that, a 7-Barbadian EBU 3.75 guiding catheter introduced into the system. After cannulating the left main, a 0.014 balanced medium weight J- wire was advanced across the left main and positioned in the ramus intermedius. Subsequently attempt to cross the total occlusion of the obtuse marginal branch using a 0.014 BMW wire were unsuccessful. That wire was removed and with the help of a Fine Cross and a Whisper J-wire, the total occlusion was crossed and the wire was positioned distally. That wire was exchanged over the FineCross to the 0.014 balanced medium weight J-wire. Subsequently, a 2.0 x 8 mm Trek balloon was advanced and multiple inflation maximum of 8 atmospheres were done. Following that, the balloon was removed and a 2.5 x 12 mm Trek balloon was advanced and multiple inflation maximum of 8 atmospheres were done. Following that, the balloon was removed and a 2.5 x 15 mm Xience Julia stent was deployed in the proximal segment of the obtuse marginal branch and post dilated at 16 atmospheres. After that, another 2.5 x 12 mm Xience Julia stent was deployed in the distal segment, post-dilated to 16 atmospheres and subsequent to that, 2.5 x 12 mm Xience Julia stent was deployed between the 2 stents and post-dilated to 16 atmospheres. Following that, the balloon was removed and a 3.0 x 15 mm NC Trek balloon was advanced and multiple inflation in the stented segment were done at maximum of 12 atmospheres. After the last inflation, after appropriate wait, the balloon and the guidewire were withdrawn back in the guiding catheter. The images were obtained and repeated, those images reveal stable successful stenting. At that point, the Fine Cross was advanced over the wire of the ramus intermedius and was exchanged to a Viper wire. Subsequently, orbital atherectomy was done with 2 runs at slow speed in the left main. Following that, the wire was exchanged back to a 0.014 balanced medium weight J- wire. Using the FineCross microcatheter and a 3.5 x 12 mm Trek balloon was advanced and one inflation left main was done. Following that, the balloon was removed and a 4.0 x 18 mm Xience Julia stent was deployed in the left main, post-dilated to 16 atmospheres. Following that, the balloon was removed and a 3.0 x 15 mm Xience Julia stent was deployed in the ramus intermedius, postdilated at 16 atmospheres. Following that, a 4.5 x 12 mm NC Trek balloon was advanced and inflation at the distal left main was done at 12 atmospheres. After the last inflation, after appropriate wait, the balloon and the guidewire were withdrawn back in the guiding catheter. Images were obtained and repeated. Those images reveal stable successful stenting. At that point, the guiding catheter, the balloon and the guidewire removed. The sheath was removed, hemostasis was obtained with deployment of an Angio-Seal. There was no immediate complication. Patient is returned to his room in stable condition. Of note, the patient had mild chest discomfort that resolved at the end of the procedure. He received a total of 12,000 units of intravenous heparin and ACT was monitored. He was continued on clopidogrel. Prior to the stenting and images of the saphenous vein graft to the obtuse marginal branch, was done using a 6-Barbadian LBU catheter. RESULTS: 1. Successful recanalization of a total occluded obtuse marginal branch with reduction of stenosis from 100% to 0% in a long calcified segment. 2. Successful atherectomy orbital atherectomy and stenting of the distal left main with reduction of stenosis from 80% to 0%. 3. Successful stenting of the ramus intermedius with reduction of stenosis from 80% to 0%. RECOMMENDATION: Patient will be continued on aspirin, Plavix and statin. The importance of dual antiplatelet treatment were discussed with the patient and he is full understanding and agreement. Duration of procedure is 1 hour 45 minutes. CASSIDYL / IJN: [id number] / BEATRIZ
--- NOTE | 2019-09-08 15:22 | LTR ---
DATE OF SERVICE: 09/08/2019 RE: Joey Terrazas Dear Dr. Zayas; I had the pleasure to perform coronary angioplasty and stenting on Mr. Terrazas at [facility] on September 08, 2019 and a full copy of the procedure note will be forwarded to you. In brief, he underwent successful recanalization of chronic occluded obtuse marginal branch as well as stenting of his left main and ramus intermedius. I am hopeful that this procedure will stabilize his status. Thank you again for allowing me to participate in this patient's care. Please feel free to call for any questions. Sincerely yours, MD ALIYA Sterling / HAYLEYN: [id number] /
[2019-09-08] MEDS: METOPROLOL TARTRATE 25 MG TAB PO SCH (20:56)
[2019-09-08 21:00] VITALS: RESP 16
[2019-09-08] MEDS ORDERED: ATORVASTATIN 80 MG TAB PO SCH (21:00)
[2019-09-08] MEDS ORDERED: LOSARTAN 50 MG TAB PO SCH (21:00)
[2019-09-09 08:31] LABS: African American GFR (CKD) >90 (>60 ml/min/1.73 sqM); Anion Gap 8 mmol/L; Blood Urea Nitrogen 11 mg/dL (9-20); Calcium 9.5 mg/dL (8.4-10.2); Carbon Dioxide 25 mmol/L (22-30); Chloride 106 mmol/L (98-107); Glucose 108 mg/dL (74-99); Non-African American GFR(CKD) >90 (>60 ml/min/1.73 sqM); Potassium 4.4 mmol/L (3.5-5.1); Sodium 139 mmol/L (137-145)
[2019-09-09] MEDS ORDERED: NON FORMULARY DRUG (Ubidecarenone [Co Q-10] 100 MG) PO SCH (09:00)
[2019-09-09] MEDS ORDERED: ASPIRIN 81 MG PO SCH (09:00)
[2019-09-09] MEDS: METOPROLOL TARTRATE 25 MG TAB PO SCH (09:11)
--- NOTE | 2019-09-09 10:11 | PN ---
PROGRESS NOTE Mr. Terrazas is a 73-year-old male with known history of coronary artery disease, status post coronary artery bypass grafting, who presented with an acute myocardial infarction in July, underwent stenting of the saphenous vein graft to the obtuse marginal branch. He was found to have a totally occluded [place] obtuse marginal branch and significant disease in the left main leading into a ramus intermedius. Yesterday, he underwent recanalization of chronically occluded obtuse marginal branch and atherectomy of the left main with stenting of the left main and ramus intermedius. He is doing well this morning. He denies any chest pain. His breathing has been stable. He denies any dizziness, palpitation. He denies any nausea. He continues to be on aspirin once a day, Lipitor 80 mg daily, Plavix 75 mg daily, losartan 100 mg daily, metoprolol tartrate 25 mg twice a day. PHYSICAL EXAMINATION: Blood pressure 125/58 with a heart rate in the 60s. LUNGS: Clear. HEART: Regular rate and rhythm, S1, S2. No S3. No rub with a systolic ejection murmur heard at the base, no diastolic murmur. ABDOMEN: Soft, obese, nontender. EXTREMITIES: Trace edema. Right groin, no hematoma. LAB DATA: Revealed BUN creatinine 11 and 0.68, potassium 4.4. EKG revealed no acute changes. IMPRESSION: 1. Status post stenting of the obtuse marginal branch, left main and ramus intermedius. 2. Status post coronary artery bypass grafting. 3. Hypertension. 4. Hyperlipidemia. RECOMMENDATION: The patient will be discharged home today and followed as an outpatient in one week. MMODL / IJN: [id number] /
[2019-09-09 10:58] VITALS: BP 94/56; PULSE 60; TEMP 98
[2019-09-09] MEDS ORDERED: CLOPIDOGREL 75 MG TAB PO SCH (11:00)
[2019-09-09 11:10] VITALS: BMI 40.8
[2019-09-09 11:44] LABS: Glucose,Whole Blood 82 mg/dL (75-99)
== END 2019-09-09 13:59 | disposition home or self-care (01) ==
LOC: CATHCVL 08:03 → 3SCARD 11:15 → CATHCVL 09-09 13:59
PROVIDERS: ATTEND Internal Medicine Interventional Cardiology
DX: I25.10 Atherosclerotic heart disease of native coronary artery without angina pectoris (principal); I25.82 Chronic total occlusion of coronary artery; I10 Essential (primary) hypertension; Z87.891 Personal history of nicotine dependence; E78.2 Mixed hyperlipidemia; M19.90 Unspecified osteoarthritis, unspecified site; G47.33 Obstructive sleep apnea (adult) (pediatric); Z95.1 Presence of aortocoronary bypass graft; Z95.5 Presence of coronary angioplasty implant and graft; Z82.49 Family history of ischemic heart disease and other diseases of the circulatory system; Z79.02 Long term (current) use of antithrombotics/antiplatelets; Z79.82 Long term (current) use of aspirin; Z79.899 Other long term (current) drug therapy
CPT/HCPCS: 85347; 80048 ×2; 85025; C9600 ×2; C9602; C1769 ×7; C1760; C1887 ×3; C1725 ×5; C1714; C1874; C1894; J2250; J2001; J3010; J1644 ×2; J1170; Q9967 ×2